=== PATIENT | female | born 1985 | race Caucasian/White ===

== ENCOUNTER 2017-05-29 12:31 | Emergency (ER) | payer MEDICAID, OTHER ==
[~2017-05-29] VITALS: Ht 167.6 cm; Wt 70.0 kg
[~2017-05-29 12:31] MED LIST: MIREIUD IU
[2017-05-29 12:32] VITALS: BP 125/68; PULSE 106; RESP 20; TEMP 98.2; O2SAT 99
--- NOTE | 2017-05-29 12:39 | PD ---
Physical Exam Date Seen by Provider: May 29, 2017 Time Seen by Provider: 12:33 Narrative 31 yo female here for evaluation of spotting while 6 weeks . Mild abdominal discomfort but per patient no pain. Bleeding is spotting but concern because is not going away. No nausea or vomit. Vitals are stable in triage. Awaiting bed placement. Data Data Last Documented VS Vital Signs Date Time Temp Pulse Resp B/P Pulse Ox O2 Delivery O2 Flow Rate FiO2 05/29/17 12:32 98.2 106 20 125/68 99 Room Air [facility] Medical Record Reviewed: Yes Supervised Visit with MADINA: Jesus Sutherland May 29, 2017 12:39
--- NOTE | 2017-05-29 13:29 | PD ---
HPI Chief Complaint: Related Problem Time Seen by Provider: 12:45 Travel History International Travel<30 days: No Contact w/Intl Traveler<30days: No Traveled to known affect area: No History of Present Illness HPI 31 year-old woman who presents to the emergency department complaining of vaginal bleeding, cramping, complaining of pain in the setting of . States she is about 6 weeks . She's had spotting off and on for well. She states starting yesterday and today she started having heavy vaginal bleeding. She had some very mild abdominal cramping. Her last menstrual period was in April, she had an IUD out on the fourth of bleeding after that. She is 2 para 1, 0, 0, 1. She otherwise had been feeling generally well and healthy. No other complaints. History Past Medical History Medical History: Denies Significant Hx Tetanus Vaccination: Unknown Influenza Vaccination: No Menopausal: No Social History Alcohol Use: No Tobacco Use: No Allergies-Medications (Allergen,Severity, Reaction): Coded Allergies: Penicillin (Verified Allergy, Intermediate, 02/14/16) Reported Meds & Prescriptions Reported Meds & Active Scripts Active Reported Mirena (Levonorgestrel (Iud)) Iud 1 IU Review of Systems Except as stated in HPI: all other systems reviewed are Neg Physical Exam Narrative GENERAL: Well-appearing 31 year-old woman, no acute distress. SKIN: Focused skin assessment warm/dry. HEAD: Atraumatic. Normocephalic. CARDIOVASCULAR: Regular rate and rhythm. No murmur appreciated. RESPIRATORY: No accessory muscle use. Clear to auscultation. Breath sounds equal bilaterally. GASTROINTESTINAL: Abdomen soft, non-tender, nondistended. Hepatic and splenic margins not palpable. MUSCULOSKELETAL: No obvious deformities. No edema. NEUROLOGICAL: Awake and alert. No obvious cranial nerve deficits. Motor grossly within normal limits. Normal speech. PSYCHIATRIC: Appropriate mood and affect; insight and judgment normal. PELVIC: Normal x-ray of vaginal genitalia. Moderate red vaginal bleeding. Minimal palpable uterine enlargement. No adnexal masses. Data Data Last Documented VS Vital Signs Date Time Temp Pulse Resp B/P Pulse Ox O2 Delivery O2 Flow Rate FiO2 05/29/17 12:32 98.2 106 20 125/68 99 Room Air Orders Beta Hcg (Quant/Titer) (05/29/17 12:46) Complete Rh (05/29/17 12:46) Ed Poc Ultrasound (05/29/17 12:46) Labs Laboratory Tests Test 05/29/17 13:00 Human Chorionic Gonadotropin, 315 MIU/ML Quant Blood Type O POSITIVE Rho(D) Type POSITIVE MDM Medical Decision Making Medical Screen Exam Complete: Yes Emergency Medical Condition: Yes Interpretation(s) HCG 315 Rh+ Differential Diagnosis Threatened AB, IUP, ectopic , miscarriage, other Narrative Course Medical decision making 31-year-old presents to the emergency department complaining of bleeding in the setting of . Looks well. Pelvic exam was unremarkable. Ultrasound did not show any IUP. Recommend 48 hour repeat Quant. Diagnosis Primary Impression: Threatened Patient Instructions: General Instructions Additional Instructions: Return to the emergency department 48 hours for repeat hCG. Return to the emergency department sooner for any new or worsening symptoms. Med/Other Pt SpecificInfo: Prescription(s) given Disposition: 01 DISCHARGE HOME Condition: Stable Masoud Vilchis MD May 29, 2017 13:29
[2017-05-29 13:47] LABS: BETA HCG QUANT 315 MIU/ML (0-5)
[2017-05-29 14:30] VITALS: BP 128/74
== END 2017-05-29 14:32 | disposition home or self-care (01) ==
LOC: NEPD 12:31
DX: O20.0 Threatened abortion (principal)
CPT/HCPCS: 84702; 86901; 99284

== ENCOUNTER 2017-05-31 11:36 | Emergency (ER) | payer OTHER ==
[~2017-05-31] VITALS: Ht 167.6 cm; Wt 69.0 kg
[2017-05-31 11:37] VITALS: BP 119/67; PULSE 87; RESP 15; TEMP 98.7; O2SAT 98
--- NOTE | 2017-05-31 12:11 | PD ---
HPI Chief Complaint: Related Problem Time Seen by Provider: 12:08 Travel History International Travel<30 days: No Contact w/Intl Traveler<30days: No Traveled to known affect area: No History of Present Illness HPI 31-year-old female presents the emergency department with follow-up threatened Miscarriage. Patient states she is here the 28th with hCG of 315 at that time. Patient states her low back pain is somewhat better, and her cramping is minimal sort of like a "typical menstrual cycle". She is continuing to pass some clots, but bleeding seems to be somewhat improved from 2 days ago. He has no fever, chills, urinary symptoms, nausea, vomiting, or diarrhea. To penicillin. Blood type checked 2 days ago was O+. PFSH Past Medical History Diminished Hearing: No Reproductive: Yes (IUD) Immunizations Current: Yes ?: Menopausal: No Social History Alcohol Use: No Tobacco Use: No Substance Use: No Allergies-Medications (Allergen,Severity, Reaction): Coded Allergies: Penicillin (Verified Allergy, Intermediate, 05/31/17) Reported Meds & Prescriptions Reported Meds & Active Scripts Active No Active Prescriptions or Reported Medications Review of Systems Except as stated in HPI: all other systems reviewed are Neg General / Constitutional: No: Fever Eyes: No: Visual changes HENT: No: Headaches Cardiovascular: No: Chest Pain or Discomfort Respiratory: No: Shortness of Breath Gastrointestinal: No: Abdominal Pain Genitourinary: No: Dysuria Musculoskeletal: No: Pain Skin: No Rash Neurologic: No: Weakness Psychiatric: No: Depression Endocrine: No: Polydipsia Hematologic/Lymphatic: No: Easy Bruising Physical Exam Narrative GENERAL: Patient appears in no acute distress. SKIN: Warm and dry. Normal color. Normal turgor. HEAD: Atraumatic. Normocephalic. EYES: Pupils equal and round. No scleral icterus. No injection or drainage. ENT: No nasal bleeding or discharge. Mucous membranes pink and moist. NECK: Trachea midline. No JVD. Supple nontender. CARDIOVASCULAR: Regular rate and rhythm. RESPIRATORY: No accessory muscle use. Clear to auscultation. Breath sounds equal bilaterally. GASTROINTESTINAL: Abdomen soft, mild suprapubic tenderness, nondistended. Hepatic and splenic margins not palpable. No CVA tenderness. MUSCULOSKELETAL: Extremities without clubbing, cyanosis, or edema. No obvious deformities. NEUROLOGICAL: Awake and alert. No obvious cranial nerve deficits. Motor grossly within normal limits. Five out of 5 muscle strength in the arms and legs. Normal speech. PSYCHIATRIC: Appropriate mood and affect; insight and judgment normal. Data Data Last Documented VS Vital Signs Date Time Temp Pulse Resp B/P Pulse Ox O2 Delivery O2 Flow Rate FiO2 05/31/17 11:37 98.7 87 15 119/67 98 Orders Beta Hcg (Quant/Titer) (05/31/17 12:05) Labs Laboratory Tests Test 05/31/17 12:15 Human Chorionic Gonadotropin, 113 MIU/ML Quant [facility] Medical Decision Making Medical Screen Exam Complete: Yes Emergency Medical Condition: Yes Differential Diagnosis 6 weeks . Vaginal bleeding. Threatened miscarriage. Narrative Course Patient is medically stable at time of exam. Repeat hCG is ordered. Repeat hCG is 113. Patient is informed that this is indeed a miscarriage and that she [facility]. Patient should expect the bleeding to improve, as well as the cramping. Patient should return the emergency Department with worsening PE bleeding or pain as needed. Diagnosis Primary Impression: Spontaneous miscarriage Referrals: [facility] call for appointment Patient Instructions: General Instructions, Spontaneous Miscarriage (ED) Additional Instructions: Repeat hCG is 113. Patient is informed that this is indeed a miscarriage and that she should follow -up with the women[facility]. Patient should expect the bleeding to improve, as well as the cramping. Patient should return the emergency Department with worsening PE bleeding or pain as needed. Med/Other Pt SpecificInfo: No Meds Exist/No RX given Scripts No Active Prescriptions or Reported Meds Disposition: 01 DISCHARGE HOME Condition: Stable Sylvester Aguilar May 31, 2017 12:11
[2017-05-31 12:46] LABS: BETA HCG QUANT 113 MIU/ML (0-5)
== END 2017-05-31 13:05 | disposition home or self-care (01) ==
LOC: NEPD 11:36
DX: O20.0 Threatened abortion (principal); Z88.0 Allergy status to penicillin
CPT/HCPCS: 84702; 99281